=== PATIENT | male | born 1955 | race Caucasian/White ===

== ENCOUNTER 2016-10-25 13:41 | Day surgery (SDC) | payer OTHER ==
[~2016-10-25] VITALS: Ht 175.3 cm; Wt 103.2 kg
[2016-10-25] VITALS (8 sets, daily range): BP systolic 106–130; BP diastolic 6–75; PULSE 52–62; RESP 13–18; O2SAT 96–100
[2016-10-25] MEDS ORDERED: Dexamethasone 4 mg/mL Inj ONE (13:42)
[2016-10-25] MEDS ORDERED: fentaNYL-PF 50 mCg/mL 2 mL Inj ONE (13:42)
[2016-10-25] MEDS ORDERED: Lidocaine PF 1% 30 mL Inj ONE (13:42)
[2016-10-25] MEDS ORDERED: Ondansetron 2 mg/mL 2 mL Inj ONE (13:42)
[2016-10-25] MEDS ORDERED: MetoCLOpramide 5 mg/mL 2 mL Inj ONE (13:42)
[2016-10-25] MEDS ORDERED: Propofol 10,000 mCg/mL 20 mL Inj ONE (13:42)
[2016-10-25] MEDS ORDERED: CeFAZolin Inj 2 gm / 50mL D5W IV ONE (14:44)
[2016-10-25] MEDS: Lactated Ringer's 1,000 ML IV SCH ×3 (14:57→15:47)
[2016-10-25] MEDS: CeFAZolin Inj 2 GM in IV Premix 1 EACH IV ONE ×2 (15:18→15:57)
--- NOTE | 2016-10-25 15:35 | PCM.HPANE ---
Patient Data Date of Service: Oct 25, 2016 Surgeon Admitting Provider: Attending Provider:Anuradha Clemons MD Primary Care Physician:Karen Wang MD Other Provider:Radha Parikh Anesthesia Reason for Visit Bladder Tumor Ht/WT & BMI Height (Feet): 5 Height (Inches): 9 Weight (Kilograms): 103.2 Body Mass Index 33.00 Allergies Coded Allergies: No Known Allergies (Verified Allergy, Unknown, 10/25/16) Past Anesthesia History Anesthesia History: Denies:: Anesthesia Reactions, Fam Anesthesia Reaction, Fam Malignant Hypertherm, Malignant Hyperthermia Diabetes History Hx Diabetes?: Yes (pre diabetes) Type of Diabetes: Diet Controlled MRSA MRSA: No Medications Hypertension Medication: No Home Meds Incl Beta Eduard: No No Active Prescriptions or Reported Meds History History of ENT Problems?: Yes HEENT History: Positive for:: Sinus Problem (nasal surgery) Denies:: Cataracts Hearing Problem Hx of Heart Problems?: No Cardiovascular History: Denies:: AICD Abdominal Aortic Aneurism Chest Pain Congestive Heart Failure Edema Heart Murmur Hypertension Irregular Heartbeat Pacemaker Hx of Respiratory Problem?: Yes Respiratory History: Positive for:: Use of C-PAP Machine (MINIMAL USE) Denies:: Asthma COPD Emphysema Pneumonia Tuberculosis Other Resp Pertinent History: LORI Hx Neurologic Problems?: No Neurological History: Denies:: Alzheimer's Disease CVA Dementia Dizziness Headaches Multiple Sclerosis Parkinson's Disease Seizures Hx of GI Problems?: Yes Gastrointestinal History: Positive for:: Gastroesphageal Reflux (takes OTC meds, not every day) Denies:: Cirrhosis Gastrointestinal Bleeding Heartburn Hepatitis Hiatal Hernia Rectal Bleeding Hx of Problems?: Yes Genitourinary History: Denies:: Kidney Stones Urinary Tract Infection Male Hx: Denies:: Prostate Problems Scrotal Mass Testicular Surgery Skin History: Denies:: History Skin Disorders? Pressure Ulcers Hx Musculoskeletal Problems?: Yes Musculoskeletal History: Positive for:: Back Injury (low back pain - no lower extremity radiculopathy/neuropathy) Denies:: Joint Replacement Musculoskeletal Trauma Hx of Psycho/Social Problems?: No Psycho Social History: Denies:: Anxiety Hx Depression Hx Surgeries?: Yes (nasal, TURBT) Hx Any Other Health Problems?: Yes Other History: Denies:: Cancer Thyroid Disease History Blood Transfusions: Denies:: Blood Transfusions Hx Diabetes: Yes (pre diabetes) Hx Alcohol Use: NoHx Substance Use: No Smoking Status: Former Smoker Have You Smoked inLast 12 mo: No Stop/Bang Treated for Sleep Apnea?: Yes Do You Have a CPAP Machine?: Yes LORI Risk Assessment: High Risk, =/>3 Yes LORI Category 1: Yes Risk Assessment Category Category 1A: Patient has history of documented sleep apnea, and HAS NOT received any narcotic, sedative or anesthesia administration during this stay. Category 1B: Patient has history of documented sleep apnea, and HAS received any narcotic , sedative or anesthesia administration during this stay Category 2: Patient has SUSPECTED Obstructive Sleep Apnea, and HAS received any narcotic , sedative or anesthesia administration during this stay. Category 3: Patient has SUSPECTED Obstructive Sleep Apnea and HAS NOT received narcotic, sedative or anesthesia administration during this stay. Category 4: Outpatient in Procedural Areas with known sleep apnea or who screen positive for High Risk via the STOP/BANG questionnaire. Exam Exam Vital Signs Vital Signs Date Time Temp Pulse Resp B/P Pulse Ox O2 Delivery O2 Flow Rate FiO2 10/25/16 14:29 36.8 55 18 109/61 96 General Appearance: Alert, Oriented X3, Cooperative, No Acute Distress HEENT/AIRWAY: MP 2, Neck Movement (from), Mouth Opening (>3), Other (tmd>3) Lungs: Normal Air Movement Heart: Exam Unremarkable, Regular Rate/Rhythm, Normal S1, Normal S2, No Murmurs /Rubs/Gallops Meds/Labs/Diagnostics Admission Meds Current Medications Lactated Ringer's 1,000 ml @ 120 mls/hr Q8H20M IV Last administered on 15:16; Start 10/25/16 at 05:00; Stop 10/25/16 at 13:30; Status DC Cefazolin Sodium/ Dextrose/Premix (Ancef Inj / D5W 50mL/IV Premix) 50 ml @ 100 mls/hr ONCE ONCE IV Last administered on 10/25/16 15:18; Start 10/25/16 at 06: 00; Stop 10/25/16 at 06:29; Status DC Plan Impression Patient chart reviewed, patient interviewed and anesthestic plan with risks, benefits, and alternatives discussed, and informed consent obtained. NPO Status: 07/04 ASA Physical Status: ASA2 Mod Systemic Disease Anesthetic Plan: GA Bene/Risks/Altern/Consents: Yes HP Complete Prior to Induction: Yes Nicolas Summers MD Oct 25, 2016 15:35
[2016-10-25] MEDS ORDERED: HYDROcodone-APAP 5-325 mg Tablet PO PRN (15:55)
[2016-10-25] MEDS ORDERED: Lactated Ringer's 1,000 ML IV SCH (16:02)
[2016-10-25] MEDS ORDERED: Lactated Ringer's 500 ML IV PRN (16:02)
[2016-10-25] MEDS ORDERED: EPHEDrine Sulfate 50 mg/mL Inj IVPUSH PRN (16:05)
[2016-10-25] MEDS ORDERED: Dexamethasone 4 mg/mL Inj IVPUSH PRN (16:05)
[2016-10-25] MEDS ORDERED: fentaNYL-PF 50 mCg/mL 2 mL Inj IVPUSH PRN (16:05)
[2016-10-25] MEDS ORDERED: HYDROmorphone 1 mg/mL Inj IVPUSH PRN (16:05)
[2016-10-25] MEDS ORDERED: MetoCLOpramide 5 mg/mL 2 mL Inj IVPUSH PRN (16:05)
[2016-10-25] MEDS ORDERED: Phenylephrine 10,000 mCg/mL Inj IVPUSH PRN (16:05)
[2016-10-25] MEDS ORDERED: Ondansetron 2 mg/mL 2 mL Inj IVPUSH PRN (16:05)
--- NOTE | 2016-10-25 18:23 | OP ---
[address] [address] OPERATIVE REPORT PATIENT: RENETTA DAVIS : 1955 MR#: [id number] ADMIT: 10/25/2016 JOB ID: [id number] DATE OF SURGERY: 10/25/2016 PREOPERATIVE DIAGNOSIS(ES): History of bladder cancer. POSTOPERATIVE DIAGNOSIS(ES): History of bladder cancer. PROCEDURE PERFORMED: Cystoscopy and bladder biopsy. SURGEON: Anuradha Clemons MD. SUPERVISOR POLICY CHANGE CLERKS: None. FINDINGS: No gross evidence of recurrent bladder tumor. ANESTHESIA: General. ESTIMATED BLOOD LOSS: Less than 5 mL. DRAINS: None. SPECIMEN: Bladder biopsies. COMPLICATIONS: None. CONDITION: Stable. INDICATION FOR PROCEDURE: The patient is a 60-year-old gentleman with a history of bladder cancer. He is status post BCG induction therapy. He now presents for bladder biopsy. DESCRIPTION OF THE PROCEDURE: After informed consent was obtained, the patient was taken to the operating room. A time-out was performed identifying correct patient, surgical site, and procedure. General anesthesia was smoothly induced. He was given intravenous antibiotics just prior to start of the procedure. He was placed in lithotomy position and all pressure points were identified and appropriately padded. His genitals were then prepped and draped in the usual sterile fashion. A 22-Greek cystoscope was applied to the patient's urethra and advanced into the bladder. The bladder was drained. Both ureteral orifices were seen in orthotopic position. The bladder was systematically inspected with 30- and 70-degree lenses. There was an old stellate scar at the left posterior base of the bladder, posterior to the left ureteral orifice, consistent with a history of transurethral resection of bladder tumor. Bladder biopsies commenced in this area as well as randomly in the bladder at the posterior and lateral aspects of the bladder. These biopsies were taken with cold cup biopsy forceps. Bugbee electrode was used to cauterize these areas. The bladder was drained. The bladder was re-insufflated and there was no bleeding at the termination of the procedure. The bladder was then drained and instruments were removed from the patient's body. The patient was then reversed from general anesthesia and taken to the PACU in good and stable condition. CANDICE
--- NOTE | 2016-10-25 18:27 | PCM.ANEP2 ---
Post Anesthesia Evaluation ASA/CMS Post Anesthesia VS in Patient's Normal Range?: Yes Resp Stable; Airway Patent?: Yes CV Function & Hydration Stable: Yes Mental Status Recovered?: Yes Pain control Satisfactory?: Yes N/V Control Satisfactory?: Yes Nicolas Summers MD Oct 25, 2016 18:27
--- NOTE | 2016-10-29 12:40 | PATH ---
SURGICAL PATHOLOGY Attending Physician:Anuradha Clemons, CASE STATUS: Signed Out PATIENT NAME: RENETTA DAVIS PID: [id number] : 1955 DATE COLLECTED:10/25/2016 00:00 SPECIMEN: Bladder, Biopsy CLINICAL HISTORY: BLADDER TUMOR 1). BLADDER TUMOR FINAL DIAGNOSIS: 1.BLADDER BIOPSY: LOW-GRADE TRANSITIONAL EPITHELIAL DYSPLASIA. NEGATIVE FOR HIGH-GRADE DYSPLASIA AND PAPILLARY TRANSITIONAL CELL NEOPLASM. NO EVIDENCE OF INVASIVE CARCINOMA. ICD10 CODE Z85.51 GROSS DESCRIPTION: The specimen is received in one formalin filled container labeled with the patient's name, sublabeled "bladder" and consists of 4 portions of tissue which aggregate to 0.4 x 0.4 x 0.3 CM. The specimen is entirely submitted in one cassette. 10/26/2016 [facility] MICRO DESCRIPTION: See diagnosis. ICD-9 CODES: CPT CODES: 1: 84166 Electronically Signed Out Ivan Coto MD [facility] [address], [place] [address] Technical component performed at [facility], [facility] [address], [place], [address]
== END 2016-10-25 23:59 | disposition home or self-care (01) ==
LOC: SAS 13:41
PROVIDERS: ATTEND Urology
DX: Z85.51 Personal history of malignant neoplasm of bladder (principal); G47.33 Obstructive sleep apnea (adult) (pediatric); R73.03 Prediabetes; K21.9 Gastro-esophageal reflux disease without esophagitis; Z87.891 Personal history of nicotine dependence
CPT/HCPCS: 52204; J0690; J1100; J2250; J2405; J2765; J3010; J7120